=== PATIENT | female | born 1980 | race Hispanic/Latino ===

== ENCOUNTER → 2023-06-25 | Outpatient (CLI) | payer MEDICAID ==
[~2023-06-25] MED LIST: ACET-2079 PO; FERR-72 PO; IBUP-2784 PO
== END | disposition home or self-care (01) ==
LOC: RAH 09:08
PROVIDERS: ATTEND Obstetrics & Gynecology
DX: Z12.31 Encounter for screening mammogram for malignant neoplasm of breast (principal)
CPT/HCPCS: 77067

== ENCOUNTER → 2024-06-26 | Outpatient (CLI) | payer MEDICAID | END | disposition home or self-care (01) | LOC: RAH 15:08 | PROVIDERS: ATTEND Family Medicine | DX: Z12.31 Encounter for screening mammogram for malignant neoplasm of breast (principal) | CPT/HCPCS: 77067 ==